=== PATIENT | female | born 1990 | race Two or more races ===

== ENCOUNTER 2025-05-06 13:57 | Emergency (ER) | payer OTHER ==
[~2025-05-06] VITALS: Ht 154.9 cm; Wt 43.5 kg
[2025-05-06] MEDS ORDERED: [UNRECOGNIZED DRUG - OTHER] (14:05)
[2025-05-06] MEDS ORDERED: AMOX-CLAV 875-1 EAC1 PO (15:20)
[2025-05-06] MEDS ORDERED: ACETAMINOPHEN 500 MG GEL..CAP PO ONE ×2 (15:25→15:30)
== END 2025-05-06 15:32 ==
LOC: ER 14:36
DX: S01.322A Laceration with foreign body of left ear, initial encounter (principal); X58.XXXA Exposure to other specified factors, initial encounter; Y93.89 Activity, other specified; Y92.89 Other specified places as the place of occurrence of the external cause; Y99.9 Unspecified external cause status

== ENCOUNTER 2025-05-17 14:38 | Emergency (ER) | payer OTHER ==
[~2025-05-17] VITALS: Ht 154.9 cm; Wt 45.4 kg
[~2025-05-17 14:38] MED LIST: AMOX-CLAV 875-1 EAC1 PO; [UNRECOGNIZED DRUG - OTHER]
[2025-05-17] MEDS ORDERED: MIRTAZAPINE30 MG PO (15:16)
== END 2025-05-17 18:47 | disposition home or self-care (01) ==
LOC: ER 14:38 → EDBD 14:45 → ER 14:45
DX: Z48.02 Encounter for removal of sutures (principal)